=== PATIENT | female | born 1970 | race African-American/Black ===

== ENCOUNTER 2018-10-02 08:44 | Emergency (ER) | payer MEDICAID, OTHER ==
[~2018-10-02] VITALS: Ht 157.5 cm; Wt 50.0 kg
[2018-10-02] MEDS ORDERED: IBUPROFEN 400MG TABLET PO ONE (12:00)
[2018-10-02 12:14] VITALS: BP 128/84
== END 2018-10-02 16:00 | disposition left against medical advice (07) ==
LOC: ER 08:44
DX: S09.8XXA Other specified injuries of head, initial encounter (principal); M25.511 Pain in right shoulder; M25.521 Pain in right elbow; Y08.89XA Assault by other specified means, initial encounter; Y93.89 Activity, other specified; Y92.89 Other specified places as the place of occurrence of the external cause; Y99.8 Other external cause status; Z88.6 Allergy status to analgesic agent; Z88.5 Allergy status to narcotic agent
CPT/HCPCS: 71045; 72052; 73030; 73080; 81025; 99284